=== PATIENT | female | born 1975 | race Two or more races ===

== ENCOUNTER 2018-12-24 06:19 | Day surgery (SDC) | payer MEDICAID ==
[2018-12-21 15:20] LABS: BASOPHIL % 0.8 % (0-2); PLATELET COUNT 387 x10^3mcL (130-400)
[2018-12-21 15:23] LABS: ALKALINE PHOSPHATASE 88 U/L (46-116); ALT/SGPT 18 U/L (14-59); AST/SGOT 8 U/L (15-37); BILIRUBIN TOTAL 0.18 mg/dL (0.20-1.00); CALCIUM 8.5 mg/dL (8.5-10.1); CHLORIDE SERUM 105 mmol/L (98-107); CREATININE SERUM 0.5 mg/dL (0.6-1.0); GFR1 > 60 mL/min; GLUCOSE SERUM 100 mg/dL (74-106); POTASSIUM SERUM 3.6 mmol/L (3.5-5.1); SODIUM SERUM 142 mmol/L (136-145)
[2018-12-21 15:25] LABS: ALBUMIN 3.3 g/dL (3.4-5.0)
[2018-12-21 15:45] LABS: RED CELL DISTRIBUTION WIDTH 15.8 % (11.5-14.5)
[~2018-12-24] VITALS: Ht 152.4 cm; Wt 84.8 kg
[2018-12-24 06:54] VITALS: BP 116/71
[2018-12-24 11:06] VITALS: BP 110/68
== END 2018-12-24 10:45 | disposition home or self-care (01) ==
LOC: DS 06:19 → OR 08:30 → DS 10:45
PROVIDERS: Obstetrics & Gynecology
DX: D25.0 Submucous leiomyoma of uterus (principal); N92.1 Excessive and frequent menstruation with irregular cycle; E66.9 Obesity, unspecified; Z68.36 Body mass index [BMI] 36.0-36.9, adult
CPT/HCPCS: C1758; J2250; J2704; J3010; J7120